=== PATIENT | female | born 2000 | race Caucasian/White ===

== ENCOUNTER 2023-10-20 13:51 | Emergency (ER) | payer MEDICAID ==
[~2023-10-20] VITALS: Ht 162.6 cm; Wt 51.8 kg
[2023-10-20] MEDS ORDERED: ketorolac tromethamine 15mg/ml inj. IM ONE (14:15)
[2023-10-20] MEDS ORDERED: ketorolac trometh. 30mg/ml inj. IM ONE (14:25)
[2023-10-20 16:06] VITALS: BP 98/66; PULSE 66; TEMP 98; O2SAT 100
[2023-10-20 16:08] VITALS: RESP 16
== END 2023-10-20 16:08 | disposition home or self-care (01) ==
LOC: ER 13:52
DX: M25.551 Pain in right hip (principal); M79.604 Pain in right leg; Z91.013 Allergy to seafood; Z79.899 Other long term (current) drug therapy; W19.XXXA Unspecified fall, initial encounter; Y93.89 Activity, other specified; Y92.89 Other specified places as the place of occurrence of the external cause; Y99.8 Other external cause status
CPT/HCPCS: 76856; 93976; 96372; 99285; J1885

== ENCOUNTER 2025-03-17 06:41 | Emergency (ER) | payer MEDICAID ==
[~2025-03-17] VITALS: Ht 162.6 cm; Wt 66.3 kg
[2025-03-17 06:44] VITALS: TEMP 98.1
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
[2025-03-17] MEDS: ketorolac trometh 30MG/ML vial 30 MG/ML VIAL IM ONE (07:01)
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
[2025-03-17] MEDS ORDERED: AMOX-117 PO (08:52)
[2025-03-17] MEDS: amox tr/potassium clavulanate 875/125mg TAB PO ONE (08:56)
[2025-03-17] MEDS: ampicillin/sulbac 3gm/NS 100ml 100 ML IV SCH (08:56)
[2025-03-17] MEDS: DEXAMETHASONE 6 MG TABLET PO ONE (08:56)
[2025-03-17] MEDS: dexamethasone 4mg tablet PO ONE (08:56)
[2025-03-17] MEDS: dexamethasone sod phosphate 10mg/ml inj IV STA (08:57)
[2025-03-17 09:00] VITALS: BP 109/68; PULSE 77; RESP 15; O2SAT 98
== END 2025-03-17 09:20 | disposition home or self-care (01) ==
LOC: ER 06:42
DX: S00.83XA Contusion of other part of head, initial encounter (principal); K04.7 Periapical abscess without sinus; G89.11 Acute pain due to trauma; Z91.018 Allergy to other foods; Y04.0XXA Assault by unarmed brawl or fight, initial encounter; Y93.89 Activity, other specified; Y92.89 Other specified places as the place of occurrence of the external cause; Y99.8 Other external cause status
CPT/HCPCS: 70486; 96372; 99285; J1885; J8540

== ENCOUNTER 2025-03-19 13:32 | Outpatient (CLI) | payer MEDICAID ==
[~2025-03-19 13:32] MED LIST: AMOX-117 PO
--- NOTE | 2025-03-19 18:35 | RADIOLOGY REPORT ---
MRI Abdomen, MRCP without IV Contrast Exam Date: 03/19/2025 01:47 PM Comparison: None History: OTHER SPECIFIED DISEASES OF LIVER Technique: Multisequence multiplanar MRI images were obtained of the abomen. MRCP including 3D SPACE, Radial 3D slabs and SPACE 3D MIP images Findings: Liver: Right hepatic mass measuring up to 64 mm not well evaluated without intravenous contrast. Spleen: Unremarkable. Pancreas: The pancreas is normal in appearance without focal lesions. Gallbladder and ducts: Gallbladder is normal in appearance. The cystic duct, right and left hepatic ducts, common hepatic duct, and common bile ducts are unremarkable. The pancreatic duct is within n ormal limits. Adrenal glands: Unremarkable. Kidneys: Normal appearance without suspicious lesions or hydronephrosis. Visualized bowel: Grossly unremarkable. Vasculature: Unremarkable. Lymphadenopathy: No evidence for lymphadenopathy. Ascites: Absent. Musculoskeletal: Bone marrow signal is normal. IMPRESSION: 1. 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 This is incompletely evaluated without intravenous contrast. Consider follow-up MRI of the abdomen with contrast. No evidence of biliary ob struction. HS:Kiya
== END 2025-03-19 23:59 | disposition home or self-care (01) ==
LOC: MRI02 13:32
PROVIDERS: ATTEND Nurse Practitioner
DX: R16.0 Hepatomegaly, not elsewhere classified (principal); K76.89 Other specified diseases of liver
CPT/HCPCS: 74181

== ENCOUNTER 2025-04-21 13:37 | Emergency (ER) | payer MEDICAID ==
[~2025-04-21] VITALS: Ht 162.6 cm; Wt 68.5 kg
[2025-04-21 14:00] VITALS: BP 109/56; PULSE 78; O2SAT 98
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
[2025-04-21] MEDS ORDERED: AMOX-580 PO (16:04)
[2025-04-21] MEDS ORDERED: IBUP-1986 PO (16:05)
[2025-04-21 16:22] VITALS: RESP 16
[2025-04-21] MEDS: ketorolac trometh 15mg/ml vial 15 MG/ML ML IM ONE (16:22)
[2025-04-21 16:25] VITALS: TEMP 97.2
== END 2025-04-21 16:27 | disposition home or self-care (01) ==
LOC: ER 13:38
DX: K04.7 Periapical abscess without sinus (principal)
CPT/HCPCS: 96372; 99283; J1885